=== PATIENT | female | born 1945 | race Caucasian/White ===

== ENCOUNTER 2018-08-19 08:11 | Inpatient (IN) | payer OTHER ==
[2018-08-19] MEDS: ONDANSETRON 4 MG INJ IV (08:21)
[2018-08-19] MEDS ORDERED: ASPIRIN 325 MG TAB PO (08:30)
[2018-08-19 08:51] LABS: ADD MAN DIFF? NO
[2018-08-19] MEDS: IODIXANOL LOCM 100 ML BTL ×2 (08:53)
[2018-08-19] MEDS: SOD CHLORIDE 0.9% 100 ML ×2 (08:53)
[2018-08-19 08:54] LABS: ABNORMAL IP MESSAGE 1; BASOPHILS % 0.3 % (0.0-2.0); HEMATOCRIT 35.7 % (37.0-47.0); LYMPHOCYTES # 0.1 10^3/ul (0.8-2.9); LYMPHOCYTES % 3.8 % (15.0-51.0); MEAN CORPUSCULAR HEMOGLOBIN 28.2 pg (29.0-33.0); MEAN CORPUSCULAR HGB CONC 33.6 g/dl (32.0-37.0); MEAN PLATELET VOLUME 9.9 fl (7.4-10.4); MONOCYTE # 0.1 10^3/ul (0.3-0.9); MONOCYTES % 1.3 % (0.0-11.0); NEUTROPHIL # 3.5 10^3/ul (1.6-7.5); NEUTROPHILS % 93.5 % (39.0-77.0); PLATELET COUNT 214 10^3/UL (140-415); POSITIVE DIFF @See below; RED BLOOD COUNT 4.25 10^6/ul (4.20-5.40); RED CELL DISTRIBUTION WIDTH 15.7 % (11.5-14.5)
[2018-08-19 08:54] LABS: WHITE BLOOD COUNT 3.7 10^3/ul (4.8-10.8)
[2018-08-19] MEDS: CEFTRIAXONE 1 GM/50 ML (PMX) 50 ML IVPB (09:00)
[2018-08-19 09:04] LABS: HEMOGLOBIN A1C 8.7 % (0-5.9)
[2018-08-19 09:11] LABS: ANION GAP 15 (5-13); BLOOD UREA NITROGEN 10 mg/dl (7-20); CARBON DIOXIDE 27 mmol/L (21-31); CHLORIDE 90 mmol/L (97-110); CHOL/HDL RATIO 2.9 RATIO; CHOLESTEROL 154 mg/dl (100-200); CREATININE 0.77 mg/dl (0.44-1.00); GLUCOSE 399 mg/dl (70-220); HDL CHOLESTEROL 53 mg/dl (33-92); LDL CHOLESTEROL,CALCULATED 73 mg/dl; POTASSIUM 3.3 mmol/L (3.5-5.1); SODIUM 132 mmol/L (135-144); TRIGLYCERIDES 141 mg/dl (0-149)
[2018-08-19 09:13] LABS: INR 1.02; PROTIME 13.5 Sec (11.9-14.9); PT RATIO 1.1
[2018-08-19 09:14] LABS: PARTIAL THROMBOPLASTIN TIME 30.5 Sec (23.0-35.0)
[2018-08-19 09:17] LABS: CREATINE KINASE < 20 IU/L (23-200)
[2018-08-19 09:23] LABS: CK-MB < 0.22 ng/ml (0.0-2.4); TROPONIN-I 0.059 ng/ml (0.000-0.120)
[2018-08-19 09:26] LABS: ETHANOL < 10.0 mg/dl (0-0)
[2018-08-19] MEDS: SODIUM CHLORIDE 0.9% 1L BAG IV* (09:50)
[2018-08-19] MEDS: ACETAMINOPHEN 650 MG SUPP PR (10:34)
[2018-08-19] MEDS: ASPIRIN 300 MG SUPP PR (10:34)
[2018-08-19] MEDS ORDERED: ACETAMINOPHEN 325 MG TAB PO (11:00)
[2018-08-19] MEDS ORDERED: ONDANSETRON 4 MG INJ IV ×2 (11:00→12:30)
[2018-08-19 11:43] LABS: ADD UMIC YES; UR ASCORBIC ACID NEGATIVE (NEGATIVE); UR BACTERIA FEW /HPF (NONE SEEN); UR BILIRUBIN (Dip) NEGATIVE (NEGATIVE); UR BLOOD (Dip) 3+ mg/dL (NEGATIVE); UR CLARITY SLIGHTLY CLOUDY (CLEAR); UR COLOR YELLOW (YELLOW); UR GLUCOSE (Dip) 3+ mg/dL (NEGATIVE); UR KETONES (Dip) 1+ mg/dL (NEGATIVE); UR LEUKOCYTE ESTERASE (Dip) 2+ Leu/ul (NEGATIVE); UR NITRITE (Dip) NEGATIVE (NEGATIVE); UR RBC > 182 /HPF (0-5); UR SPECIFIC GRAVITY (Dip) 1.052 (1.003-1.030); UR TOTAL PROTEIN (Dip) 1+ mg/dl (NEGATIVE); UR UROBILINOGEN (Dip) NEGATIVE (NEGATIVE); UR WBC 57 /HPF (0-5)
[2018-08-19 12:00] LABS: AMPHETAMINE/METHAMPHETAMINE Negative (NEGATIVE); BARBITURATES Negative (NEGATIVE); BENZODIAZEPINES Negative (NEGATIVE); CANNABINOIDS Negative (NEGATIVE); COCAINE Negative (NEGATIVE); OPIATES Negative (NEGATIVE)
[2018-08-19] MEDS ORDERED: NORepinephrine 8MG/250 ML (PMX 250 ML IV (12:24)
[2018-08-19] MEDS ORDERED: ALBUTEROL/IPRATROPIUM (NEB) 3 ML AMP HHN (12:30)
[2018-08-19] MEDS ORDERED: SENNA TAB PO (12:30)
[2018-08-19] MEDS ORDERED: morphine 2 MG INJ IV (12:30)
[2018-08-19] MEDS ORDERED: NITROGLYCERIN (SL) 0.4 MG TAB SL (12:30)
[2018-08-19] MEDS ORDERED: MAGNESIUM HYDROXIDE 30ML CUP PO (12:30)
[2018-08-19] MEDS ORDERED: HYDROCODONE/APAP (5/325) TAB PO (12:30)
[2018-08-19] MEDS ORDERED: hydrALAzine 20 MG INJ IV (12:30)
[2018-08-19] MEDS ORDERED: DOCUSATE SODIUM 100 MG CAP PO (12:30)
[2018-08-19] MEDS ORDERED: NACL 0.9% 3 ML SYG IV (12:30)
[2018-08-19] MEDS: NORepinephrine 8MG/250 ML (PMX 250 ML IV (13:09)
[2018-08-19 14:11] LABS: FREE T4 (FREE THYROXINE) 2.48 ng/dl (0.78-2.44)
[2018-08-19 14:13] LABS: LACTIC ACID 1.4 mmol/L (0.5-2.0)
[2018-08-19] MEDS: SOD CHLORIDE 0.45% 1,000 ML IV (15:34)
[2018-08-19] MEDS ORDERED: GLUCAGON 1 MG INJ IM (16:30)
[2018-08-19] MEDS ORDERED: DEXTROSE 50% 50 ML SYRINGE IV ×2 (16:30)
[2018-08-19] MEDS ORDERED: GLUCOSE GEL 15 GRAM TUBE PO (16:30)
[2018-08-19] MEDS: POTASSIUM CHLORIDE (SR) 20 MEQ TAB PO (17:27)
[2018-08-19] MEDS: INSULIN ASPART [NOVOLOG] 3 ML PEN SC ×3 (17:35→21:17)
[2018-08-19 18:50] LABS: GLUCOSE 408 mg/dl (70-220)
[2018-08-19] MEDS ORDERED: INSULIN GLARGINE [LANtus] 3 ML PEN SC (21:00)
[2018-08-19] MEDS: HEPARIN 5,000 UNIT/1 ML VIAL SC (21:14)
[2018-08-19] MEDS: INSULIN GLARGINE [LANTus] (100 UNITS/ML) SYG SC (21:15)
[2018-08-19] MEDS: ATORVASTATIN 80 MG TAB PO (21:17)
[2018-08-19] MEDS: ACETAMINOPHEN 325 MG TAB PO (21:52)
[2018-08-19] MEDS: LORAZEPAM 2 MG INJ IV (22:05)
[2018-08-20] MEDS: ACCU-CHEK XX ×2 (01:16→23:44)
[2018-08-20] MEDS: SOD CHLORIDE 0.45% 1,000 ML IV ×2 (01:16→16:05)
[2018-08-20 05:22] LABS: WHITE BLOOD COUNT 10.7 10^3/ul (4.8-10.8)
[2018-08-20 05:22] LABS: ABNORMAL IP MESSAGE 1; HEMATOCRIT 32.2 % (37.0-47.0); HEMOGLOBIN 10.7 g/dl (12.0-16.0); MEAN CORPUSCULAR HEMOGLOBIN 28.2 pg (29.0-33.0); MEAN CORPUSCULAR HGB CONC 33.2 g/dl (32.0-37.0); MEAN CORPUSCULAR VOLUME 84.7 fl (82.0-101.0); MEAN PLATELET VOLUME 10.3 fl (7.4-10.4); PLATELET COUNT 201 10^3/UL (140-415)
[2018-08-20 05:29] LABS: HEMOGLOBIN A1C 8.8 % (0-5.9)
[2018-08-20 05:44] LABS: POSITIVE DIFF @See below
[2018-08-20 05:45] LABS: ADD MAN DIFF? YES
[2018-08-20 05:51] LABS: CHOL/HDL RATIO 2.9 RATIO; HDL CHOLESTEROL 42 mg/dl (33-92); LDL CHOLESTEROL,CALCULATED 53 mg/dl; TRIGLYCERIDES 136 mg/dl (0-149)
[2018-08-20 05:51] LABS: CHOLESTEROL 122 mg/dl (100-200)
[2018-08-20 05:52] LABS: ANION GAP 12 (5-13); BLOOD UREA NITROGEN 15 mg/dl (7-20); CALCIUM 8.2 mg/dl (8.4-10.2); CARBON DIOXIDE 23 mmol/L (21-31); CHLORIDE 99 mmol/L (97-110); CREATININE 0.77 mg/dl (0.44-1.00); GLUCOSE 176 mg/dl (70-220); MAGNESIUM 1.2 mg/dl (1.7-2.5); PHOSPHORUS 2.9 mg/dl (2.5-4.9); SODIUM 134 mmol/L (135-144)
[2018-08-20 06:02] LABS: POTASSIUM 2.8 mmol/L (3.5-5.1)
[2018-08-20 06:15] LABS: THYROID STIMULATING HORMONE 0.255 MIU/L (0.465-4.680)
[2018-08-20] MEDS: POTASSIUM CHLORIDE 100 ML IVPB ×3 (06:39→11:15)
[2018-08-20] MEDS ORDERED: VANCOMYCIN IV PER PHARMACY XX (07:00)
[2018-08-20 07:24] LABS: ANISOCYTOSIS 1+ (0-0); BAND NEUTROPHILS #M 3.8 10^3/ul (0.0-0.6); BAND NEUTROPHILS % (M) 36 % (0-4); BASOPHIL #M 0.1 10^3/ul (0.0-0.0); BASOPHILS % (M) 1 % (0-2); BURR CELLS 1+ (0-0); EOSINOPHILS % (M) 1 % (0-7); LYMPHOCYTES #M 0.4 10^3/ul (0.8-2.9); LYMPHOCYTES % (M) 4 % (15-51); PLATELET ESTIMATE NORMAL; POIKILOCYTOSIS 1+ (0-0); POLYCHROMASIA 2+ (0-0); REACTIVE LYMPHOCYTES #M 0.2 10^3/ul (0.0-0.0); REACTIVE LYMPHOCYTES% (M) 2 % (0-0); SEG NEUT #M 6.4 10^3/ul (1.6-7.5); SEGMENTED NEUTROPHILS (M) % 56 % (39-77); SMUDGE%M 9 % (0-0)
[2018-08-20] MEDS ORDERED: VANCOMYCIN 1 GM 250 ML IVPB (08:00)
[2018-08-20] MEDS: MAGNESIUM SULFATE 4 GM/100 ML 100 ML IVPB (08:03)
[2018-08-20] MEDS: CLOPIDOGREL 75 MG TAB PO (08:57)
[2018-08-20] MEDS: POLYETHYLENE GLYCOL 17 GM PACKET PO (08:58)
[2018-08-20] MEDS: ASPIRIN 81 MG TAB PO (08:58)
[2018-08-20] MEDS: CEFTRIAXONE 1 GM/50 ML (PMX) 50 ML IVPB (08:58)
[2018-08-20] MEDS: INSULIN ASPART [NOVOLOG] 3 ML PEN SC ×7 (09:02→21:00)
[2018-08-20] MEDS: HEPARIN 5,000 UNIT/1 ML VIAL SC ×2 (09:02→21:03)
[2018-08-20] MEDS: VANCOMYCIN 1 GM 250 ML IVPB (09:59)
[2018-08-20] MEDS: GLUCOSE GEL 15 GRAM TUBE BUCCAL (11:53)
[2018-08-20] MEDS: GLUCOSE GEL 15 GRAM TUBE PO (12:12)
[2018-08-20] MEDS: INSULIN GLARGINE [LANTus] (100 UNITS/ML) SYG SC (21:00)
[2018-08-20] MEDS: ATORVASTATIN 80 MG TAB PO (21:00)
[2018-08-21] MEDS: SOD CHLORIDE 0.45% 1,000 ML IV ×2 (04:22→17:32)
[2018-08-21 05:42] LABS: HEMATOCRIT 28.9 % (37.0-47.0); HEMOGLOBIN 9.9 g/dl (12.0-16.0); MEAN CORPUSCULAR HEMOGLOBIN 28.3 pg (29.0-33.0); MEAN CORPUSCULAR HGB CONC 34.3 g/dl (32.0-37.0); MEAN CORPUSCULAR VOLUME 82.6 fl (82.0-101.0); MEAN PLATELET VOLUME 11.1 fl (7.4-10.4); PLATELET COUNT 192 10^3/UL (140-415); RED CELL DISTRIBUTION WIDTH 16.5 % (11.5-14.5)
[2018-08-21 05:42] LABS: WHITE BLOOD COUNT 8.8 10^3/ul (4.8-10.8)
[2018-08-21 06:01] LABS: POSITIVE DIFF @See below
[2018-08-21 06:02] LABS: ADD MAN DIFF? YES
[2018-08-21 06:04] LABS: ANION GAP 8 (5-13); BLOOD UREA NITROGEN 13 mg/dl (7-20); CALCIUM 7.9 mg/dl (8.4-10.2); CARBON DIOXIDE 24 mmol/L (21-31); CHLORIDE 102 mmol/L (97-110); CREATININE 0.52 mg/dl (0.44-1.00); GLUCOSE 95 mg/dl (70-220); POTASSIUM 3.5 mmol/L (3.5-5.1); SODIUM 134 mmol/L (135-144)
[2018-08-21 06:05] LABS: MAGNESIUM 2.4 mg/dl (1.7-2.5)
[2018-08-21 06:05] LABS: PHOSPHORUS 2.1 mg/dl (2.5-4.9)
[2018-08-21 07:13] LABS: ANISOCYTOSIS 1+ (0-0); BAND NEUTROPHILS #M 1.1 10^3/ul (0.0-0.6); BAND NEUTROPHILS % (M) 13 % (0-4); BURR CELLS 1+ (0-0); EOSINOPHILS % (M) 2 % (0-7); GIANT THROMBO% (M) 2 % (0-0); LYMPHOCYTES #M 1.1 10^3/ul (0.8-2.9); LYMPHOCYTES % (M) 13 % (15-51); MONOCYTE #M 0.2 10^3/ul (0.3-0.9); MONOCYTES % (M) 3 % (0-11); PLATELET ESTIMATE NORMAL; PLATELET MORPHOLOGY COMMENT @See below; POIKILOCYTOSIS 2+ (0-0); REACTIVE LYMPHOCYTES #M 0.2 10^3/ul (0.0-0.0); REACTIVE LYMPHOCYTES% (M) 3 % (0-0); SEG NEUT #M 5.9 10^3/ul (1.6-7.5); SEGMENTED NEUTROPHILS (M) % 66 % (39-77); SMUDGE%M 23 % (0-0)
[2018-08-21] MEDS: INSULIN ASPART [NOVOLOG] 3 ML PEN SC ×7 (07:35→20:19)
[2018-08-21] MEDS: POLYETHYLENE GLYCOL 17 GM PACKET PO (08:18)
[2018-08-21] MEDS: VANCOMYCIN 750 MG (PMX) 250 ML IVPB (08:18)
[2018-08-21] MEDS: CLOPIDOGREL 75 MG TAB PO (08:18)
[2018-08-21] MEDS: ASPIRIN 81 MG TAB PO (08:18)
[2018-08-21] MEDS: CEFTRIAXONE 1 GM/50 ML (PMX) 50 ML IVPB (08:18)
[2018-08-21] MEDS: HEPARIN 5,000 UNIT/1 ML VIAL SC ×2 (08:24→20:23)
[2018-08-21] MEDS ORDERED: VANCOMYCIN 750 MG (PMX) 250 ML IVPB (09:00)
[2018-08-21] MEDS ORDERED: INSULIN ASPART [NOVOLOG] 3 ML PEN SC (11:30)
[2018-08-21] MEDS: POTASSIUM PHOSPHATE 20 MEQ in SOD CHLORIDE 0.9% 250 ML IVPB (11:43)
[2018-08-21] MEDS: ATORVASTATIN 80 MG TAB PO (20:20)
[2018-08-21] MEDS ORDERED: INSULIN GLARGINE [LANTus] (100 UNITS/ML) SYG SC (21:00)
[2018-08-21] MEDS: INSULIN GLARGINE [LANTus] (100 UNITS/ML) SYG SC (23:17)
[2018-08-22] MEDS: ACCU-CHEK XX (01:44)
[2018-08-22 05:35] LABS: ADD MAN DIFF? NO
[2018-08-22 05:43] LABS: BASOPHILS % 0.3 % (0.0-2.0); EOSINOPHILS # 0.2 10^3/ul (0.0-0.5); EOSINOPHILS % 2.5 % (0.0-7.0); HEMATOCRIT 33.7 % (37.0-47.0); HEMOGLOBIN 11.3 g/dl (12.0-16.0); LYMPHOCYTES # 1.2 10^3/ul (0.8-2.9); LYMPHOCYTES % 19.1 % (15.0-51.0); MEAN CORPUSCULAR HEMOGLOBIN 28.2 pg (29.0-33.0); MEAN CORPUSCULAR HGB CONC 33.5 g/dl (32.0-37.0); MEAN PLATELET VOLUME 10.5 fl (7.4-10.4); MONOCYTE # 0.4 10^3/ul (0.3-0.9); MONOCYTES % 6.2 % (0.0-11.0); NEUTROPHIL # 4.4 10^3/ul (1.6-7.5); NEUTROPHILS % 70.8 % (39.0-77.0); PLATELET COUNT 231 10^3/UL (140-415); RED BLOOD COUNT 4.01 10^6/ul (4.20-5.40); RED CELL DISTRIBUTION WIDTH 16.1 % (11.5-14.5)
[2018-08-22 05:43] LABS: WHITE BLOOD COUNT 6.3 10^3/ul (4.8-10.8)
[2018-08-22 05:55] LABS: ANION GAP 5 (5-13); BLOOD UREA NITROGEN 8 mg/dl (7-20); CALCIUM 8.4 mg/dl (8.4-10.2); CARBON DIOXIDE 27 mmol/L (21-31); CHLORIDE 103 mmol/L (97-110); CREATININE 0.57 mg/dl (0.44-1.00); GLUCOSE 67 mg/dl (70-220); POTASSIUM 3.2 mmol/L (3.5-5.1); SODIUM 135 mmol/L (135-144)
[2018-08-22] MEDS: SOD CHLORIDE 0.45% 1,000 ML IV (06:44)
[2018-08-22] MEDS: INSULIN ASPART [NOVOLOG] 3 ML PEN SC ×3 (08:00→11:58)
[2018-08-22] MEDS: POLYETHYLENE GLYCOL 17 GM PACKET PO (08:33)
[2018-08-22] MEDS: LEVOTHYROXINE 125 MCG TAB PO (08:34)
[2018-08-22] MEDS: ASPIRIN 81 MG TAB PO (08:35)
[2018-08-22] MEDS: CLOPIDOGREL 75 MG TAB PO (08:36)
[2018-08-22] MEDS: CEFTRIAXONE 1 GM/50 ML (PMX) 50 ML IVPB (08:37)
[2018-08-22] MEDS: HEPARIN 5,000 UNIT/1 ML VIAL SC (08:55)
[2018-08-22] MEDS: POTASSIUM CHLORIDE (SR) 20 MEQ TAB PO (11:58)
== END 2018-08-22 15:00 | disposition home health service (06) | DRG 871 ==
LOC: E/R 08:11 → 6WM 08-21 10:23 → ICU 10:49
PROVIDERS: Hospitalist
DX: A41.9 Sepsis, unspecified organism (principal); R65.21 Severe sepsis with septic shock; G93.41 Metabolic encephalopathy; I63.50 Cerebral infarction due to unspecified occlusion or stenosis of unspecified cerebral artery; B37.49 Other urogenital candidiasis; E11.9 Type 2 diabetes mellitus without complications; E03.9 Hypothyroidism, unspecified; I10 Essential (primary) hypertension; B95.0 Streptococcus, group A, as the cause of diseases classified elsewhere; Z79.4 Long term (current) use of insulin; Z79.82 Long term (current) use of aspirin; Z90.49 Acquired absence of other specified parts of digestive tract; Z86.73 Personal history of transient ischemic attack (TIA), and cerebral infarction without residual deficits
CPT/HCPCS: 36415; 70450; 70496; 70498; 70551; 71045; 76937; 80048; 80061; 80307; 81001; 82550; 82553; 82947; 82962; 83036; 83605; 83735; 84100; 84439; 84443; 84484; 85025; 85610; 85730; 86850; 86900; 86901; 87040; 87081; 87086; 87400; 92610; 93005; 93306; 93880; 96365; 96366; 96375; 97116; 97161; 97167; 97530; 97535; 99291-25